=== PATIENT | female | born 1940 | race Caucasian/White ===

== ENCOUNTER → 2016-11-07 | Outpatient (CLI) | payer MEDICARE, OTHER ==
[~2016-11-07] MED LIST: ALDACTONE 25MG25 MG PO; CALCIUM CIT-VI1 EAC2 PO; CEPHALEXIN500 M1 PO; CHILDREN'S ASPI81 M1 PO; CHOLEST OFF450 MG PO; COREG25 MG PO; CYMBALTA60 MG PO; DIGITEK0.125 MG; DULOXETINE60 MG PO; FERATE28 MG; FERROUS SULFAT325 M4 PO; LASIX20 M1 PO; LASIX40 MG PO; LOSARTAN POTAS100 MG PO; MECLIZINE PO; MELADOX NATURAL3 MG PO; MIRAPEX 1MG PO; MIRAPEX1 MG PO; PERCOCET 325 MG1 TA2 PO; STOOL SOFTENER100 M1; SULFASALAZINE500 MG PO; TRAZADONE HYDR100 MG; TYLENOL PM EXTR1 TA1 PO; VALIUM5 M1 PO; ZOFRAN ODT8 M1 PO
== END ==
LOC: RAD 15:59
DX: R10.12 Left upper quadrant pain (principal); K57.30 Diverticulosis of large intestine without perforation or abscess without bleeding
CPT/HCPCS: Q9967

== ENCOUNTER → 2016-11-13 | Outpatient (CLI) | payer MEDICARE, OTHER | LOC: LAB 15:01 | DX: Z51.81 Encounter for therapeutic drug level monitoring (principal); Z79.899 Other long term (current) drug therapy ==

== ENCOUNTER → 2016-11-20 | Outpatient (CLI) | payer MEDICARE, OTHER | LOC: LAB 10:39 | DX: R60.9 Edema, unspecified (principal) ==

== ENCOUNTER 2016-12-24 08:53 | Emergency (ER) | payer MEDICARE, OTHER ==
[~2016-12-24 08:53] MED LIST changes: -MECLIZINE PO; -VALIUM5 M1 PO; -ZOFRAN ODT8 M1 PO
[2016-12-24] MEDS ORDERED: VALIUM5 M1 PO (10:34)
[2016-12-24] MEDS ORDERED: MECLIZINE PO (10:34)
[2016-12-24] MEDS ORDERED: ZOFRAN ODT8 M1 PO (10:34)
[2016-12-24 11:13] VITALS: BP 143/61
== END 2016-12-24 11:05 | disposition home or self-care (01) ==
LOC: ED 08:53
DX: H83.02 Labyrinthitis, left ear (principal); B34.9 Viral infection, unspecified

== ENCOUNTER → 2017-04-11 | Outpatient (CLI) | payer MEDICARE, OTHER ==
[~2017-04-11] MED LIST changes: +MECLIZINE PO; +VALIUM5 M1 PO; +ZOFRAN ODT8 M1 PO
== END ==
LOC: LAB 16:06
DX: E61.1 Iron deficiency (principal); R73.02 Impaired glucose tolerance (oral); I50.9 Heart failure, unspecified; E78.2 Mixed hyperlipidemia; M85.80 Other specified disorders of bone density and structure, unspecified site; G47.33 Obstructive sleep apnea (adult) (pediatric); R20.2 Paresthesia of skin

== ENCOUNTER → 2017-04-14 | Day surgery (SDC) | payer MEDICARE, OTHER | LOC: MSO 10:38 | DX: L57.0 Actinic keratosis (principal) ==

== ENCOUNTER 2017-11-11 00:05 | Emergency (ER) | payer MEDICARE, OTHER ==
[~2017-11-11] VITALS: Ht 170.2 cm; Wt 88.6 kg
[2017-11-11] MEDS ORDERED: COZAAR100 MG PO (01:06)
[2017-11-11] MEDS ORDERED: COREG 25MG25 MG/TAB PO (01:07)
[2017-11-11] MEDS ORDERED: ALDACTONE25 M1 PO (01:07)
[2017-11-11] MEDS ORDERED: DIGOXIN125 MCG PO (01:07)
[2017-11-11] MEDS ORDERED: MECLIZINE PO (01:08)
[2017-11-11] MEDS ORDERED: CYMBALTA60 M1 PO (01:08)
[2017-11-11] MEDS ORDERED: NORTRIPTYLINE H25 M1 PO (01:08)
[2017-11-11] MEDS ORDERED: LASIX20 M1 PO (01:09)
[2017-11-11] MEDS ORDERED: NORCO 325 MG-51 TA1 PO (01:09)
[2017-11-11] MEDS ORDERED: WOMEN'S DAILY F1 TAB PO (01:10)
[2017-11-11] MEDS ORDERED: ASPIR LOW81 MG PO (01:10)
[2017-11-11] MEDS ORDERED: FOSAMAX 70MG TA70 MG PO (01:10)
[2017-11-11] MEDS ORDERED: ACETAMINOPHEN1 EACH PO (01:11)
[2017-11-11] MEDS ORDERED: IRON160 MG PO (01:12)
[2017-11-11] MEDS ORDERED: VITAMIN D32000 UNIT PO (01:12)
[2017-11-11] MEDS ORDERED: COLESTIPOL HYDRO1 GM PO (01:13)
[2017-11-11 03:05] VITALS: BP 152/80
== END 2017-11-11 03:05 | disposition short-term general hospital (02) ==
LOC: ED 00:05
DX: S12.120A Other displaced dens fracture, initial encounter for closed fracture (principal); W18.30XA Fall on same level, unspecified, initial encounter; Y92.009 Unspecified place in unspecified non-institutional (private) residence as the place of occurrence of the external cause; I48.91 Unspecified atrial fibrillation; E11.9 Type 2 diabetes mellitus without complications; I10 Essential (primary) hypertension; Z95.810 Presence of automatic (implantable) cardiac defibrillator; Z79.82 Long term (current) use of aspirin; Z88.6 Allergy status to analgesic agent; Z88.5 Allergy status to narcotic agent; Z88.0 Allergy status to penicillin; R42 Dizziness and giddiness
CPT/HCPCS: A4354; J2270; L0150; L0172

== ENCOUNTER 2017-11-14 10:39 | Inpatient (IN) | payer MEDICARE, OTHER ==
[~2017-11-14] VITALS: Ht 170.2 cm; Wt 84.9 kg
[~2017-11-14 10:39] MED LIST changes: +ACETAMINOPHEN1 EACH PO; +ALDACTONE25 M1 PO; +ASPIR LOW81 MG PO; +COLESTIPOL HYDRO1 GM PO; +COREG 25MG25 MG/TAB PO; +COZAAR100 MG PO; +CYMBALTA60 M1 PO; +DIGOXIN125 MCG PO; +FOSAMAX 70MG TA70 MG PO; +IRON160 MG PO; +NORCO 325 MG-51 TA1 PO; +NORTRIPTYLINE H25 M1 PO; +VITAMIN D32000 UNIT PO; +WOMEN'S DAILY F1 TAB PO
[2017-11-18 14:53] LABS: MEAN CELL VOLUME 93 fl (78-100); MEAN CORPUSCULAR HEMOGLOBIN 29 pg (27-31); MEAN CORPUSCULAR HGB CONC 32 g/dL (33-37); MEAN PLATELET VOLUME 8.7 fl (7.4-10.4); PLATELET COUNT 258 K/mm3 (130-400); RED BLOOD COUNT 4.09 M/mm3 (4.10-5.30); RED CELL DISTRIBUTION WIDTH 13.3 % (11.5-14.5); WHITE BLOOD COUNT 9.6 K/mm3 (4.8-10.8)
[2017-11-18 14:56] VITALS: BP 165/70
[2017-11-18 15:17] LABS: BUN/CREATININE RATIO 32.1 (6.0-26.0); CALCIUM 10.4 mg/dL (8.4-10.2); POTASSIUM 4.2 mmol/L (3.6-5.0)
[2017-11-18 15:42] LABS: LYMPHOCYTE 15 % (20-51); MONOCYTE 7 % (3-10); NEUTROPHILS 77 % (42-75)
[2017-11-18 18:27] VITALS: BP 120/56
[2017-11-18 18:33] VITALS: BP 120/56
[2017-11-18 20:04] LABS: PH-URINE 5.5 (5.0 - 8.0); URINE APPEARANCE CLOUDY; URINE COLOR R
[2017-11-18 20:05] LABS: URINE BILIRUBIN NEGATIVE (NEGATIVE); URINE BLOOD 250 ery/uL (NEGATIVE); URINE GLUCOSE NEGATIVE (NEGATIVE); URINE KETONE NEGATIVE (NEGATIVE); URINE LEUKOCYTE ESTERASE 2+ (NEGATIVE); URINE NITRATE POSITIVE (NEGATIVE); URINE PROTEIN(semi-quant) 1+ mg/dL (NEGATIVE); URINE UROBILINOGEN NORMAL (NORMAL); URINE WBC 31-50 /hpf (0-3)
[2017-11-19 06:31] VITALS: BP 151/67
[2017-11-19 18:46] VITALS: BP 135/58
[2017-11-20 05:45] LABS: BUN/CREATININE RATIO 22.2 (6.0-26.0); CALCIUM 10.1 mg/dL (8.4-10.2); POTASSIUM 3.7 mmol/L (3.6-5.0)
[2017-11-20 06:27] VITALS: BP 165/76
[2017-11-20 18:37] VITALS: BP 140/53
[2017-11-21 06:11] VITALS: BP 145/68
[2017-11-21 18:38] VITALS: BP 139/55
[2017-11-22 06:32] VITALS: BP 135/60
[2017-11-22 18:25] VITALS: BP 116/50
[2017-11-23 06:29] VITALS: BP 151/76
[2017-11-23 18:26] VITALS: BP 115/54
[2017-11-24 06:21] VITALS: BP 150/60
[2017-11-24 07:15] LABS: BUN/CREATININE RATIO 17.7 (6.0-26.0); POTASSIUM 4.1 mmol/L (3.6-5.0)
[2017-11-24 18:33] VITALS: BP 158/49
[2017-11-25 06:42] VITALS: BP 141/58
[2017-11-25 13:42] LABS: PH-URINE 5.5 (5.0 - 8.0); URINE APPEARANCE CLOUDY; URINE COLOR YELLOW; URINE GLUCOSE NEGATIVE (NEGATIVE); URINE KETONE NEGATIVE (NEGATIVE); URINE PROTEIN(semi-quant) 1+ mg/dL (NEGATIVE)
[2017-11-25 13:43] LABS: URINE BILIRUBIN NEGATIVE (NEGATIVE); URINE BLOOD 250 ery/uL (NEGATIVE); URINE LEUKOCYTE ESTERASE 2+ (NEGATIVE); URINE NITRATE NEGATIVE (NEGATIVE); URINE UROBILINOGEN NORMAL (NORMAL); URINE WBC >50 /hpf (0-3)
[2017-11-25 18:35] VITALS: BP 123/63
[2017-11-26 06:25] VITALS: BP 146/65
[2017-11-26 17:09] VITALS: BP 149/71
[2017-11-26 17:35] VITALS: BP 149/71
== END 2017-11-26 18:07 | disposition short-term general hospital (02) | DRG 552 ==
LOC: MED/SURG 10:39
PROVIDERS: Internal Medicine; ADMIT Physician Assistant
DX: S12.100A Unspecified displaced fracture of second cervical vertebra, initial encounter for closed fracture (principal); I50.22 Chronic systolic (congestive) heart failure; N39.0 Urinary tract infection, site not specified; E87.1 Hypo-osmolality and hyponatremia; S14.152A Other incomplete lesion at C2 level of cervical spinal cord, initial encounter; Z66 Do not resuscitate; S13.111A Dislocation of C0/C1 cervical vertebrae, initial encounter; G47.33 Obstructive sleep apnea (adult) (pediatric); I11.0 Hypertensive heart disease with heart failure; Z87.891 Personal history of nicotine dependence; R33.9 Retention of urine, unspecified; W19.XXXA Unspecified fall, initial encounter; Y92.009 Unspecified place in unspecified non-institutional (private) residence as the place of occurrence of the external cause
CPT/HCPCS: J1650; J1885; J3010; L0150

== ENCOUNTER → 2017-12-25 | Outpatient (CLI) | payer MEDICARE, OTHER ==
[2017-11-26 17:35] VITALS: BP 149/71
== END ==
LOC: RAD 15:44
DX: I51.7 Cardiomegaly (principal); R09.02 Hypoxemia

== ENCOUNTER → 2017-12-26 | Outpatient (CLI) | payer MEDICARE, OTHER ==
[2017-11-26 17:35] VITALS: BP 149/71
[2017-12-26 11:38] LABS: BUN/CREATININE RATIO 21.5 (6.0-26.0); CALCIUM 10.7 mg/dL (8.4-10.2); POTASSIUM 4.9 mmol/L (3.6-5.0)
== END ==
LOC: RAD 10:45
PROVIDERS: Internal Medicine
DX: I51.7 Cardiomegaly (principal); R09.89 Other specified symptoms and signs involving the circulatory and respiratory systems; R09.02 Hypoxemia; R06.02 Shortness of breath; E11.9 Type 2 diabetes mellitus without complications
CPT/HCPCS: Q9967

== ENCOUNTER → 2018-02-13 | Outpatient (CLI) | payer MEDICARE, OTHER | LOC: RAD 14:54 | DX: S12.190D Other displaced fracture of second cervical vertebra, subsequent encounter for fracture with routine healing (principal); M54.12 Radiculopathy, cervical region; M81.0 Age-related osteoporosis without current pathological fracture; M50.30 Other cervical disc degeneration, unspecified cervical region ==

== ENCOUNTER 2018-04-13 14:30 | Outpatient (RCR) | payer MEDICARE, OTHER | END 2018-04-13 15:00 | disposition home or self-care (01) | LOC: PT 14:30 | DX: S12.112D Nondisplaced Type II dens fracture, subsequent encounter for fracture with routine healing (principal); W19.XXXD Unspecified fall, subsequent encounter ==

== ENCOUNTER → 2018-04-28 | Outpatient (CLI) | payer MEDICARE, OTHER | LOC: MAMMO 13:39 | DX: Z12.31 Encounter for screening mammogram for malignant neoplasm of breast (principal) ==

== ENCOUNTER → 2018-04-28 | Outpatient (CLI) | payer MEDICARE, OTHER | LOC: RAD 13:40 → MAMMO 14:30 → RAD 14:30 | DX: Z13.820 Encounter for screening for osteoporosis (principal); M85.88 Other specified disorders of bone density and structure, other site; M47.896 Other spondylosis, lumbar region ==

== ENCOUNTER → 2018-06-24 | Outpatient (CLI) | payer MEDICARE, OTHER ==
[2018-06-24 11:51] LABS: EOS # 0.3 (0.04-0.40); HEMATOCRIT 37.3 % (37.0-47.0); HEMOGLOBIN 12.1 g/dL (12.5-16.0); LYMPH# 1.3 (1.50-4.00); MEAN CELL VOLUME 93 fl (78-100); MEAN CORPUSCULAR HEMOGLOBIN 30 pg (27-31); MEAN CORPUSCULAR HGB CONC 32 g/dL (33-37); MEAN PLATELET VOLUME 9.3 fl (7.4-10.4); MONO # 0.8 (0.20-0.80); NEU # 4.2 (1.40-6.50); PLATELET COUNT 242 K/mm3 (130-400); RED CELL DISTRIBUTION WIDTH 12.8 % (11.5-14.5); WHITE BLOOD COUNT 6.8 K/mm3 (4.8-10.8)
[2018-06-24 11:53] LABS: ALBUMIN 4.4 g/dL (3.5-5.0); CALCIUM 10.8 mg/dL (8.4-10.2); TOTAL BILIRUBIN 0.6 mg/dL (0.2-1.3); TOTAL PROTEIN 7.6 g/dL (6.3-8.2)
[2018-06-24 12:54] LABS: ERYTHROCYTE SEDIMENTATION RATE 23 mm/hr (0-30)
== END ==
LOC: LAB 10:44
PROVIDERS: Internal Medicine
DX: E11.9 Type 2 diabetes mellitus without complications (principal); K90.9 Intestinal malabsorption, unspecified; I10 Essential (primary) hypertension; J43.1 Panlobular emphysema; I42.0 Dilated cardiomyopathy

== ENCOUNTER → 2018-12-04 | Outpatient (CLI) | payer MEDICARE, OTHER | LOC: RAD 13:26 | DX: M16.11 Unilateral primary osteoarthritis, right hip (principal); S33.4XXS Traumatic rupture of symphysis pubis, sequela ==

== ENCOUNTER 2019-02-05 16:48 | Emergency (ER) | payer MEDICARE, OTHER ==
[~2019-02-05] VITALS: Wt 85.3 kg
[2019-02-05] MEDS ORDERED: ASPIR LOW81 MG PO (16:58)
[2019-02-05] MEDS ORDERED: ATORVASTATIN CA20 MG PO (16:58)
[2019-02-05] MEDS ORDERED: XARELTO20 MG PO (16:59)
[2019-02-05] MEDS ORDERED: DEMADEX 20MG20 M1 PO (16:59)
[2019-02-05] MEDS ORDERED: COUMADIN 5MG5 MG/TAB PO (17:00)
[2019-02-05] MEDS ORDERED: DULOXETINE60 MG PO (17:00)
[2019-02-05] MEDS ORDERED: CARVEDILOL25 MG PO (17:00)
[2019-02-05] MEDS ORDERED: FLOVENT HFA12 GM IH (17:01)
[2019-02-05] MEDS ORDERED: NEURONTIN300 MG/CAP (17:01)
[2019-02-05 17:42] LABS: PROTHROMBIN TIME 12.7 SECONDS (9.0-12.0)
[2019-02-05 17:44] LABS: CALCIUM 10.8 mg/dL (8.4-10.2); POTASSIUM 4.1 mmol/L (3.5-5.1)
[2019-02-05 19:27] VITALS: BP 144/74
== END 2019-02-05 19:27 | disposition home or self-care (01) ==
LOC: ED 16:48
PROVIDERS: Family Medicine
DX: I48.91 Unspecified atrial fibrillation (principal); I50.9 Heart failure, unspecified; N18.9 Chronic kidney disease, unspecified; I25.10 Atherosclerotic heart disease of native coronary artery without angina pectoris; J44.9 Chronic obstructive pulmonary disease, unspecified; Z79.82 Long term (current) use of aspirin; Z79.01 Long term (current) use of anticoagulants; Z96.653 Presence of artificial knee joint, bilateral; Z96.611 Presence of right artificial shoulder joint; Z96.612 Presence of left artificial shoulder joint
CPT/HCPCS: J1940

== ENCOUNTER → 2019-03-02 | Outpatient (CLI) | payer MEDICARE, OTHER ==
[2019-02-05 19:27] VITALS: BP 144/74
[~2019-03-02] MED LIST changes: +ATORVASTATIN CA20 MG PO; +CARVEDILOL25 MG PO; +COUMADIN 5MG5 MG/TAB PO; +DEMADEX 20MG20 M1 PO; +FLOVENT HFA12 GM IH; +NEURONTIN300 MG/CAP; +XARELTO20 MG PO
[2019-03-02 16:33] LABS: ALBUMIN 3.9 g/dL (3.4-4.8); POTASSIUM 3.6 mmol/L (3.5-5.1); TOTAL BILIRUBIN 0.7 mg/dL (0.2-1.2); TOTAL PROTEIN 7.1 g/dL (6.2-8.1)
== END ==
LOC: LAB 16:01
PROVIDERS: Internal Medicine
DX: E11.9 Type 2 diabetes mellitus without complications (principal); I42.0 Dilated cardiomyopathy; I10 Essential (primary) hypertension; J43.1 Panlobular emphysema

== ENCOUNTER → 2019-03-23 | Outpatient (CLI) | payer MEDICARE, OTHER | LOC: RAD 13:35 | DX: G31.9 Degenerative disease of nervous system, unspecified (principal) ==

== ENCOUNTER → 2019-03-29 | Outpatient (CLI) | payer MEDICARE, OTHER | LOC: RAD 07:00 | DX: G20 Parkinson's disease (principal); R13.10 Dysphagia, unspecified ==

== ENCOUNTER 2019-04-06 14:03 | Outpatient (RCR) | payer MEDICARE, OTHER | END 2019-04-06 14:30 | disposition still patient (30) | LOC: SPEECH 14:03 | DX: G20 Parkinson's disease (principal); R13.12 Dysphagia, oropharyngeal phase ==

== ENCOUNTER → 2019-07-08 | Outpatient (CLI) | payer MEDICARE, OTHER ==
[~2019-07-08] VITALS: Ht 170.2 cm; Wt 82.7 kg
[~2019-07-08] MED LIST changes: +COZAAR25 M1 PO; +REQUIP0.25 M1 PO; +TYLENOL EXTRA500 M2 PO; +VITAMIN C 250250 MG PO
[2019-07-08 14:16] VITALS: BP 141/66
[2019-07-08 14:30] LABS: POTASSIUM 3.9 mmol/L (3.5-5.1)
[2019-07-08 14:31] LABS: CALCIUM 10.6 mg/dL (8.3-10.5)
== END ==
LOC: AMSURD 13:46
PROVIDERS: Internal Medicine Cardiovascular Disease
DX: I48.0 Paroxysmal atrial fibrillation (principal); Z79.899 Other long term (current) drug therapy

== ENCOUNTER 2019-08-03 14:00 | Outpatient (RCR) | payer MEDICARE, OTHER ==
[2019-07-08 14:16] VITALS: BP 141/66
== END 2019-08-03 14:30 | disposition home or self-care (01) ==
LOC: SPEECH 14:00
DX: G20 Parkinson's disease (principal)

== ENCOUNTER 2019-08-25 13:16 | Emergency (ER) | payer MEDICARE, OTHER ==
[~2019-08-25] VITALS: Wt 85.1 kg
[2019-08-25] MEDS ORDERED: COUMADIN 3MG3 MG/TAB PO (13:27)
[2019-08-25] MEDS ORDERED: NEURONTIN300 MG/CAP (13:27)
[2019-08-25] MEDS ORDERED: ALENDRONATE SOD70 MG PO (13:27)
[2019-08-25] MEDS ORDERED: DIGOX0.125 MG PO (13:28)
[2019-08-25] MEDS ORDERED: TORSEMIDE20 M1 PO (13:28)
[2019-08-25] MEDS ORDERED: ROPINIROLE HYD0.5 MG (13:29)
[2019-08-25] MEDS ORDERED: CARBIDOPA/LEVODOPA PO (13:30)
[2019-08-25 13:59] LABS: HEMATOCRIT 39.8 % (37.0-47.0); HEMOGLOBIN 12.3 g/dL (12.5-16.0); MEAN CELL VOLUME 97 fl (78-100); MEAN CORPUSCULAR HEMOGLOBIN 30 pg (27-31); MEAN CORPUSCULAR HGB CONC 31 g/dL (33-37); MEAN PLATELET VOLUME 9.1 fl (7.4-10.4); PLATELET COUNT 237 K/mm3 (130-400); RED CELL DISTRIBUTION WIDTH 16.3 % (11.5-14.5); WHITE BLOOD COUNT 9.6 K/mm3 (4.8-10.8)
[2019-08-25 14:07] LABS: ALBUMIN 4.1 g/dL (3.4-4.8); POTASSIUM 3.3 mmol/L (3.5-5.1)
[2019-08-25 14:09] LABS: CALCIUM 10.7 mg/dL (8.3-10.5); LYMPHOCYTE 11 % (20-51); MONOCYTE 8 % (3-10); NEUTROPHILS 79 % (42-75)
[2019-08-25 14:09] LABS: PROTHROMBIN TIME 15.6 SECONDS (9.0-12.0)
[2019-08-25 14:10] LABS: TOTAL PROTEIN 7.2 g/dL (6.2-8.1)
[2019-08-25 14:12] LABS: TOTAL BILIRUBIN 1.1 mg/dL (0.2-1.2)
[2019-08-25 14:22] LABS: TROPONIN-I 0.03 ng/mL (<0.030)
[2019-08-25 14:44] LABS: PH-URINE 7.5 (5.0 - 8.0); URINE APPEARANCE CLEAR; URINE BILIRUBIN NEGATIVE (NEGATIVE); URINE BLOOD NEGATIVE (NEGATIVE); URINE COLOR YELLOW; URINE GLUCOSE NEGATIVE (NEGATIVE); URINE KETONE NEGATIVE (NEGATIVE); URINE LEUKOCYTE ESTERASE NEGATIVE (NEGATIVE); URINE MUCUS PRESENT (NOT PRESENT); URINE NITRATE NEGATIVE (NEGATIVE); URINE PROTEIN(semi-quant) TRACE mg/dL (NEGATIVE); URINE UROBILINOGEN NORMAL (NORMAL)
[2019-08-25 15:04] LABS: D-DIMER 0.46 mg/L FEU (0.15-0.50)
[2019-08-25 18:08] VITALS: BP 156/68
== END 2019-08-25 18:00 | disposition short-term general hospital (02) ==
LOC: ED 13:16
PROVIDERS: Physician Assistant
DX: I50.9 Heart failure, unspecified (principal); E87.6 Hypokalemia; R11.2 Nausea with vomiting, unspecified; R79.1 Abnormal coagulation profile; I48.91 Unspecified atrial fibrillation; J44.9 Chronic obstructive pulmonary disease, unspecified; I25.10 Atherosclerotic heart disease of native coronary artery without angina pectoris; N18.9 Chronic kidney disease, unspecified; Z90.89 Acquired absence of other organs; Z79.82 Long term (current) use of aspirin; Z79.01 Long term (current) use of anticoagulants
CPT/HCPCS: J1940; J2405

== ENCOUNTER → 2019-09-03 | Outpatient (CLI) | payer MEDICARE, OTHER ==
[2019-08-25 18:08] VITALS: BP 156/68
[~2019-09-03] MED LIST changes: +ALENDRONATE SOD70 MG PO; +CARBIDOPA/LEVODOPA PO; +COUMADIN 3MG3 MG/TAB PO; +DIGOX0.125 MG PO; +ROPINIROLE HYD0.5 MG; +TORSEMIDE20 M1 PO
[2019-09-03 11:03] LABS: BASO # 0.1 (0.02-0.10); EOS # 0.2 (0.04-0.40); EOS % 2.6 % (1.0-5.0); HEMATOCRIT 39.4 % (37.0-47.0); HEMOGLOBIN 12.2 g/dL (12.5-16.0); LYMPH# 1.2 (1.50-4.00); MEAN CELL VOLUME 96 fl (78-100); MEAN CORPUSCULAR HEMOGLOBIN 30 pg (27-31); MEAN CORPUSCULAR HGB CONC 31 g/dL (33-37); MEAN PLATELET VOLUME 8.8 fl (7.4-10.4); NEU # 6.5 (1.40-6.50); PLATELET COUNT 315 K/mm3 (130-400); RED BLOOD COUNT 4.11 M/mm3 (4.10-5.30); RED CELL DISTRIBUTION WIDTH 16.6 % (11.5-14.5); WHITE BLOOD COUNT 9.1 K/mm3 (4.8-10.8)
[2019-09-03 11:09] LABS: ALBUMIN 4.1 g/dL (3.4-4.8); POTASSIUM 3.7 mmol/L (3.5-5.1)
[2019-09-03 11:11] LABS: CALCIUM 11.3 mg/dL (8.3-10.5)
[2019-09-03 11:12] LABS: TOTAL PROTEIN 7.1 g/dL (6.2-8.1)
[2019-09-03 11:14] LABS: TOTAL BILIRUBIN 0.7 mg/dL (0.2-1.2)
[2019-09-03 11:19] LABS: MAGNESIUM 2.05 mg/dL (1.60-2.60)
[2019-09-03 12:19] LABS: PROTHROMBIN TIME 15.2 SECONDS (9.0-12.0)
== END ==
LOC: LAB 10:45
PROVIDERS: Internal Medicine
DX: E11.9 Type 2 diabetes mellitus without complications (principal); I48.0 Paroxysmal atrial fibrillation; J43.1 Panlobular emphysema; I42.0 Dilated cardiomyopathy; I11.0 Hypertensive heart disease with heart failure; I50.23 Acute on chronic systolic (congestive) heart failure

== ENCOUNTER 2019-09-17 14:46 | Emergency (ER) | payer MEDICARE, OTHER ==
[~2019-09-17] VITALS: Wt 87.7 kg
[~2019-09-17 14:46] MED LIST changes: -DEMADEX 20MG20 M1 PO; +FERROUS GLUCON324 M2 PO; -IRON160 MG PO; +NEURONTIN300 MG/CAP PO; -TYLENOL EXTRA500 M2 PO
[2019-09-17 15:50] LABS: HEMATOCRIT 33.2 % (37.0-47.0); MEAN CELL VOLUME 98 fl (78-100); MEAN CORPUSCULAR HEMOGLOBIN 29 pg (27-31); MEAN CORPUSCULAR HGB CONC 30 g/dL (33-37); MEAN PLATELET VOLUME 8.3 fl (7.4-10.4); PLATELET COUNT 237 K/mm3 (130-400); RED CELL DISTRIBUTION WIDTH 16.1 % (11.5-14.5)
[2019-09-17 16:03] LABS: ALBUMIN 3.8 g/dL (3.4-4.8)
[2019-09-17 16:04] LABS: CALCIUM 10.2 mg/dL (8.3-10.5)
[2019-09-17 16:05] LABS: TOTAL PROTEIN 6.9 g/dL (6.2-8.1)
[2019-09-17 16:15] LABS: LYMPHOCYTE 12 % (20-51); MONOCYTE 7 % (3-10); NEUTROPHILS 77 % (42-75)
[2019-09-17] MEDS ORDERED: PRAMIPEXOLE DIHY1 MG PO (18:38)
[2019-09-17 18:40] LABS: PROTHROMBIN TIME 17.4 SECONDS (9.0-12.0)
[2019-09-17] MEDS ORDERED: CALCIUM CARBONATE PO (18:42)
[2019-09-17] MEDS ORDERED: MULTI-VITAMIN W1 TA1 PO (18:43)
[2019-09-17] MEDS ORDERED: CHOLEST OFF450 MG PO (18:45)
[2019-09-17 18:51] VITALS: BP 146/81
[2019-09-20] MEDS ORDERED: METOLAZONE5 MG PO (08:56)
== END 2019-09-17 19:07 | disposition other institution (70) ==
LOC: ED 14:46
PROVIDERS: Family Medicine; Nurse Practitioner Primary Care
DX: I11.0 Hypertensive heart disease with heart failure (principal); I50.82 Biventricular heart failure; I48.91 Unspecified atrial fibrillation; E11.9 Type 2 diabetes mellitus without complications; I27.20 Pulmonary hypertension, unspecified; G20 Parkinson's disease; Z79.01 Long term (current) use of anticoagulants; Z79.82 Long term (current) use of aspirin; Z95.0 Presence of cardiac pacemaker
CPT/HCPCS: J1940

== ENCOUNTER 2019-09-24 12:00 | Inpatient (IN) | payer MEDICARE, OTHER ==
[~2019-09-24] VITALS: Ht 170.2 cm; Wt 79.5 kg
[~2019-09-24 12:00] MED LIST changes: +CALCIUM CARBONATE PO; +METOLAZONE5 MG PO; +MULTI-VITAMIN W1 TA1 PO; +PRAMIPEXOLE DIHY1 MG PO
[2019-09-24 14:19] VITALS: BP 146/69
[2019-09-24 15:01] LABS: HEMOGLOBIN 13.1 g/dL (12.5-16.0); MEAN CELL VOLUME 90 fl (78-100); MEAN CORPUSCULAR HEMOGLOBIN 29 pg (27-31); MEAN CORPUSCULAR HGB CONC 33 g/dL (33-37); MEAN PLATELET VOLUME 8.4 fl (7.4-10.4); PLATELET COUNT 334 K/mm3 (130-400); RED BLOOD COUNT 4.47 M/mm3 (4.10-5.30); RED CELL DISTRIBUTION WIDTH 14.8 % (11.5-14.5); WHITE BLOOD COUNT 8.4 K/mm3 (4.8-10.8)
[2019-09-24 15:06] LABS: ALBUMIN 4.2 g/dL (3.4-4.8); SODIUM 124 mmol/L (136-145)
[2019-09-24 15:07] LABS: CALCIUM 11.8 mg/dL (8.3-10.5)
[2019-09-24 15:08] LABS: GLUCOSE 138 mg/dL (65-105); TOTAL PROTEIN 7.5 g/dL (6.2-8.1)
[2019-09-24 15:09] LABS: PH-URINE 5.5 (5.0 - 8.0); URINE APPEARANCE CLEAR; URINE BILIRUBIN NEGATIVE (NEGATIVE); URINE BLOOD NEGATIVE (NEGATIVE); URINE COLOR YELLOW; URINE GLUCOSE NEGATIVE (NEGATIVE); URINE KETONE NEGATIVE (NEGATIVE); URINE LEUKOCYTE ESTERASE NEGATIVE (NEGATIVE); URINE MUCUS PRESENT (NOT PRESENT); URINE NITRATE NEGATIVE (NEGATIVE); URINE PROTEIN(semi-quant) TRACE mg/dL (NEGATIVE); URINE UROBILINOGEN NORMAL (NORMAL)
[2019-09-24 15:10] LABS: TOTAL BILIRUBIN 1.1 mg/dL (0.2-1.2)
[2019-09-24 15:14] LABS: AST-SGOT 24 U/L (5-34)
[2019-09-24 15:15] LABS: ALT/SGPT 11 U/L (0-55); LIPASE 29 U/L (8-78)
[2019-09-24 15:17] LABS: POTASSIUM 2.8 mmol/L (3.5-5.1)
[2019-09-24 15:18] LABS: CARBON DIOXIDE > 50 mmol/L (23-31)
[2019-09-24 15:26] LABS: BAND 1 % (0-10); LYMPHOCYTE 12 % (20-51); MONOCYTE 9 % (3-10); NEUTROPHILS 74 % (42-75)
[2019-09-24 18:04] VITALS: BP 101/62
[2019-09-25 05:21] VITALS: BP 137/66
[2019-09-25 07:57] LABS: CALCIUM 10.4 mg/dL (8.3-10.5)
[2019-09-25 18:02] VITALS: BP 113/70
[2019-09-26 05:56] VITALS: BP 120/73
[2019-09-26 13:25] LABS: POTASSIUM 4.3 mmol/L (3.5-5.1)
[2019-09-26 13:26] LABS: CALCIUM 9.7 mg/dL (8.3-10.5)
[2019-09-26 17:22] VITALS: BP 119/72
[2019-09-27 05:30] VITALS: BP 116/70
[2019-09-27 17:50] VITALS: BP 110/66
[2019-09-28 05:59] VITALS: BP 137/73
[2019-09-28 16:48] LABS: HEMATOCRIT 34.8 % (37.0-47.0); MEAN CELL VOLUME 94 fl (78-100); MEAN CORPUSCULAR HEMOGLOBIN 30 pg (27-31); MEAN CORPUSCULAR HGB CONC 32 g/dL (33-37); MEAN PLATELET VOLUME 8.5 fl (7.4-10.4); PLATELET COUNT 243 K/mm3 (130-400); RED CELL DISTRIBUTION WIDTH 15.4 % (11.5-14.5); WHITE BLOOD COUNT 10.1 K/mm3 (4.8-10.8)
[2019-09-28 16:54] LABS: POTASSIUM 4.3 mmol/L (3.5-5.1)
[2019-09-28 16:55] LABS: CALCIUM 10.5 mg/dL (8.3-10.5)
[2019-09-28 17:00] LABS: LYMPHOCYTE 10 % (20-51); MONOCYTE 8 % (3-10); NEUTROPHILS 80 % (42-75)
[2019-09-28 18:30] VITALS: BP 129/64
[2019-09-29 05:29] LABS: HEMATOCRIT 33.8 % (37.0-47.0); HEMOGLOBIN 10.7 g/dL (12.5-16.0); MEAN CELL VOLUME 93 fl (78-100); MEAN CORPUSCULAR HEMOGLOBIN 30 pg (27-31); MEAN CORPUSCULAR HGB CONC 32 g/dL (33-37); MEAN PLATELET VOLUME 8.6 fl (7.4-10.4); PLATELET COUNT 232 K/mm3 (130-400); RED BLOOD COUNT 3.63 M/mm3 (4.10-5.30); RED CELL DISTRIBUTION WIDTH 15.4 % (11.5-14.5); WHITE BLOOD COUNT 10.3 K/mm3 (4.8-10.8)
[2019-09-29 05:43] LABS: POTASSIUM 4.2 mmol/L (3.5-5.1)
[2019-09-29 05:44] LABS: CALCIUM 10.4 mg/dL (8.3-10.5)
[2019-09-29 06:02] VITALS: BP 131/78
[2019-09-29 06:05] LABS: PROTHROMBIN TIME 18.1 SECONDS (9.0-12.0)
[2019-09-29 06:26] LABS: LYMPHOCYTE 7 % (20-51); MONOCYTE 5 % (3-10); NEUTROPHILS 85 % (42-75); POLYCHROMASIA 1+
[2019-09-29 17:17] LABS: PH-URINE 7.5 (5.0 - 8.0); URINE APPEARANCE CLEAR; URINE BILIRUBIN NEGATIVE (NEGATIVE); URINE BLOOD NEGATIVE (NEGATIVE); URINE COLOR YELLOW; URINE GLUCOSE NEGATIVE (NEGATIVE); URINE KETONE NEGATIVE (NEGATIVE); URINE LEUKOCYTE ESTERASE TRACE (NEGATIVE); URINE NITRATE NEGATIVE (NEGATIVE); URINE PROTEIN(semi-quant) NEGATIVE (NEGATIVE); URINE UROBILINOGEN NORMAL (NORMAL)
[2019-09-29 17:18] LABS: URINE MUCUS PRESENT (NOT PRESENT)
[2019-09-29 18:03] VITALS: BP 125/64
[2019-09-30 06:08] VITALS: BP 138/76
[2019-09-30 17:04] VITALS: BP 133/83
[2019-10-01 05:40] VITALS: BP 148/79
[2019-10-01 05:40] LABS: HEMOGLOBIN 10.7 g/dL (12.5-16.0); MEAN CELL VOLUME 94 fl (78-100); MEAN CORPUSCULAR HEMOGLOBIN 30 pg (27-31); MEAN CORPUSCULAR HGB CONC 32 g/dL (33-37); PLATELET COUNT 248 K/mm3 (130-400); RED BLOOD COUNT 3.62 M/mm3 (4.10-5.30); RED CELL DISTRIBUTION WIDTH 15.3 % (11.5-14.5); WHITE BLOOD COUNT 7.8 K/mm3 (4.8-10.8)
[2019-10-01 05:44] LABS: POTASSIUM 4.3 mmol/L (3.5-5.1)
[2019-10-01 05:45] LABS: CALCIUM 10.9 mg/dL (8.3-10.5)
[2019-10-01 05:51] LABS: PROTHROMBIN TIME 17.7 SECONDS (9.0-12.0)
[2019-10-01 06:00] LABS: LYMPHOCYTE 9 % (20-51); MONOCYTE 8 % (3-10); NEUTROPHILS 81 % (42-75); POLYCHROMASIA 1+
[2019-10-01 18:14] VITALS: BP 127/61
[2019-10-02 05:41] VITALS: BP 116/66
[2019-10-02 18:10] VITALS: BP 129/77
[2019-10-03 06:22] VITALS: BP 131/73
[2019-10-03 18:20] VITALS: BP 148/72
[2019-10-04 06:09] VITALS: BP 117/68
[2019-10-04 13:19] LABS: HEMATOCRIT 34.9 % (37.0-47.0); HEMOGLOBIN 10.5 g/dL (12.5-16.0); MEAN CELL VOLUME 97 fl (78-100); MEAN CORPUSCULAR HEMOGLOBIN 29 pg (27-31); MEAN CORPUSCULAR HGB CONC 30 g/dL (33-37); MEAN PLATELET VOLUME 8.7 fl (7.4-10.4); PLATELET COUNT 297 K/mm3 (130-400); RED BLOOD COUNT 3.61 M/mm3 (4.10-5.30); RED CELL DISTRIBUTION WIDTH 15.5 % (11.5-14.5); WHITE BLOOD COUNT 8.3 K/mm3 (4.8-10.8)
[2019-10-04 13:39] LABS: POTASSIUM 3.9 mmol/L (3.5-5.1)
[2019-10-04 13:40] LABS: CALCIUM 10.8 mg/dL (8.3-10.5)
[2019-10-04 14:13] LABS: LYMPHOCYTE 8 % (20-51); MONOCYTE 13 % (3-10); NEUTROPHILS 75 % (42-75)
[2019-10-04 14:14] LABS: OVALOCYTES 1+; TARGET CELLS 1+
[2019-10-04 17:56] VITALS: BP 130/66
[2019-10-05 06:00] VITALS: BP 131/74
[2019-10-05 06:18] LABS: PROTHROMBIN TIME 23.5 SECONDS (9.0-12.0)
[2019-10-05 18:10] VITALS: BP 130/60
[2019-10-06 06:02] VITALS: BP 121/75
[2019-10-06] MEDS ORDERED: COUMADIN 4MG4 MG/TAB PO (10:10)
== END 2019-10-06 16:25 | disposition home health service (06) | DRG 948 ==
LOC: MED/SURG 12:00
PROVIDERS: Nurse Practitioner Family; Nurse Practitioner Primary Care; Physician Assistant; ADMIT Family Medicine
DX: R53.81 Other malaise (principal); E87.1 Hypo-osmolality and hyponatremia; I50.82 Biventricular heart failure; G20 Parkinson's disease; R26.9 Unspecified abnormalities of gait and mobility; Z79.82 Long term (current) use of aspirin; Z88.0 Allergy status to penicillin
CPT/HCPCS: J1940; J3480; J3490

== ENCOUNTER → 2019-10-11 | Outpatient (CLI) | payer MEDICARE, OTHER ==
[2019-10-06 06:02] VITALS: BP 121/75
[~2019-10-11] MED LIST changes: +COUMADIN 4MG4 MG/TAB PO
[2019-10-11 12:48] LABS: PROTHROMBIN TIME 44.7 SECONDS (9.0-12.0)
== END ==
LOC: LAB 11:34
PROVIDERS: Internal Medicine
DX: I48.20 Chronic atrial fibrillation, unspecified (principal); I42.0 Dilated cardiomyopathy

== ENCOUNTER 2019-10-14 10:55 | Emergency (ER) | payer MEDICARE, OTHER ==
[~2019-10-14] VITALS: Wt 78.9 kg
[2019-10-14 11:43] LABS: HEMATOCRIT 37.3 % (37.0-47.0); HEMOGLOBIN 12.7 g/dL (12.5-16.0); MEAN CELL VOLUME 86 fl (78-100); MEAN CORPUSCULAR HEMOGLOBIN 29 pg (27-31); MEAN CORPUSCULAR HGB CONC 34 g/dL (33-37); MEAN PLATELET VOLUME 8.6 fl (7.4-10.4); PLATELET COUNT 310 K/mm3 (130-400); RED BLOOD COUNT 4.32 M/mm3 (4.10-5.30); RED CELL DISTRIBUTION WIDTH 14.5 % (11.5-14.5); WHITE BLOOD COUNT 10.9 K/mm3 (4.8-10.8)
[2019-10-14 11:45] LABS: ALBUMIN 3.9 g/dL (3.4-4.8)
[2019-10-14 11:48] LABS: TOTAL PROTEIN 7.1 g/dL (6.2-8.1)
[2019-10-14 11:49] LABS: TOTAL BILIRUBIN 1.4 mg/dL (0.2-1.2)
[2019-10-14 11:53] LABS: LYMPHOCYTE 5 % (20-51); MONOCYTE 6 % (3-10); NEUTROPHILS 87 % (42-75)
[2019-10-14 11:59] LABS: POTASSIUM 2.7 mmol/L (3.5-5.1)
[2019-10-14 15:02] VITALS: BP 131/73
== END 2019-10-14 13:45 | disposition other institution (70) ==
LOC: ED 10:55
PROVIDERS: Nurse Practitioner Primary Care
DX: E87.1 Hypo-osmolality and hyponatremia (principal); E87.6 Hypokalemia; R11.2 Nausea with vomiting, unspecified; R53.81 Other malaise; I11.0 Hypertensive heart disease with heart failure; I50.9 Heart failure, unspecified; K21.9 Gastro-esophageal reflux disease without esophagitis; Z79.01 Long term (current) use of anticoagulants; Z79.82 Long term (current) use of aspirin; Z90.49 Acquired absence of other specified parts of digestive tract; Z90.710 Acquired absence of both cervix and uterus; Z95.5 Presence of coronary angioplasty implant and graft; Z96.653 Presence of artificial knee joint, bilateral; Z96.611 Presence of right artificial shoulder joint; Z96.612 Presence of left artificial shoulder joint
CPT/HCPCS: J2405

== ENCOUNTER → 2019-10-14 | Outpatient (CLI) | payer MEDICARE, OTHER ==
[2019-10-06 06:02] VITALS: BP 121/75
== END ==
LOC: LAB 09:55
PROVIDERS: Internal Medicine Cardiovascular Disease
DX: I42.0 Dilated cardiomyopathy (principal); I48.20 Chronic atrial fibrillation, unspecified

== ENCOUNTER → 2019-11-08 | Outpatient (CLI) | payer MEDICARE, OTHER ==
[2019-10-22 13:00] VITALS: BP 133/79
[~2019-11-08] MED LIST changes: +ACETAMINOPHEN500 M5 PO; +K-TAB20 MEQ PO; +OSCAL 500 TAB500 MG PO; +PROTONIX20 M1 PO; +SLOW-MAG 106 MG1 ECT PO
[2019-11-08 13:14] LABS: HEMATOCRIT 36.4 % (37.0-47.0); MEAN CELL VOLUME 96 fl (78-100); MEAN CORPUSCULAR HEMOGLOBIN 29 pg (27-31); MEAN CORPUSCULAR HGB CONC 30 g/dL (33-37); MEAN PLATELET VOLUME 9.5 fl (7.4-10.4); PLATELET COUNT 271 K/mm3 (130-400); RED BLOOD COUNT 3.81 M/mm3 (4.10-5.30); WHITE BLOOD COUNT 6.8 K/mm3 (4.8-10.8)
[2019-11-08 13:18] LABS: ALBUMIN 3.9 g/dL (3.4-4.8)
[2019-11-08 13:19] LABS: SODIUM 135 mmol/L (136-145)
[2019-11-08 13:20] LABS: CALCIUM 9.7 mg/dL (8.3-10.5)
[2019-11-08 13:21] LABS: GLUCOSE 123 mg/dL (65-105); TOTAL PROTEIN 6.6 g/dL (6.2-8.1)
[2019-11-08 13:22] LABS: CARBON DIOXIDE 33 mmol/L (23-31)
[2019-11-08 13:23] LABS: TOTAL BILIRUBIN 0.6 mg/dL (0.2-1.2)
[2019-11-08 13:26] LABS: AST-SGOT 20 U/L (5-34)
[2019-11-08 13:27] LABS: MAGNESIUM 1.87 mg/dL (1.60-2.60)
[2019-11-08 13:28] LABS: ALT/SGPT < 6 U/L (0-55)
[2019-11-08 13:29] LABS: LYMPHOCYTE 10 % (20-51); MONOCYTE 11 % (3-10); NEUTROPHILS 76 % (42-75)
[2019-11-08 13:32] LABS: PROTHROMBIN TIME 41.5 SECONDS (9.0-12.0)
== END ==
LOC: LAB 12:26
PROVIDERS: Internal Medicine
DX: I48.91 Unspecified atrial fibrillation (principal); I11.0 Hypertensive heart disease with heart failure; I42.0 Dilated cardiomyopathy; E11.9 Type 2 diabetes mellitus without complications; J43.1 Panlobular emphysema; I50.9 Heart failure, unspecified

== ENCOUNTER → 2019-11-10 | Outpatient (CLI) | payer MEDICARE, OTHER ==
[2019-10-22 13:00] VITALS: BP 133/79
[2019-11-10 11:25] LABS: PROTHROMBIN TIME 59.5 SECONDS (9.0-12.0)
== END ==
LOC: LAB 10:27
PROVIDERS: Internal Medicine
DX: I48.20 Chronic atrial fibrillation, unspecified (principal); I42.0 Dilated cardiomyopathy

== ENCOUNTER → 2019-11-12 | Outpatient (CLI) | payer MEDICARE, OTHER ==
[2019-10-22 13:00] VITALS: BP 133/79
[2019-11-12 12:54] LABS: PROTHROMBIN TIME 24.7 SECONDS (9.0-12.0)
== END ==
LOC: LAB 11:36
PROVIDERS: Internal Medicine
DX: I48.20 Chronic atrial fibrillation, unspecified (principal); I42.0 Dilated cardiomyopathy

== ENCOUNTER → 2019-11-15 | Outpatient (CLI) | payer MEDICARE, OTHER ==
[2019-10-22 13:00] VITALS: BP 133/79
[2019-11-15 15:15] LABS: POTASSIUM 4.4 mmol/L (3.5-5.1)
[2019-11-15 15:16] LABS: CALCIUM 9.8 mg/dL (8.3-10.5)
[2019-11-15 15:22] LABS: MAGNESIUM 1.99 mg/dL (1.60-2.60)
== END ==
LOC: LAB 11:18
PROVIDERS: Internal Medicine
DX: I50.23 Acute on chronic systolic (congestive) heart failure (principal)

== ENCOUNTER → 2019-11-18 | Outpatient (CLI) | payer MEDICARE, OTHER ==
[2019-10-22 13:00] VITALS: BP 133/79
[2019-11-18 12:01] LABS: PROTHROMBIN TIME 20.2 SECONDS (9.0-12.0)
== END ==
LOC: LAB 10:47
PROVIDERS: Internal Medicine
DX: I48.20 Chronic atrial fibrillation, unspecified (principal); I42.0 Dilated cardiomyopathy

== ENCOUNTER → 2019-11-26 | Outpatient (CLI) | payer MEDICARE, OTHER ==
[2019-10-22 13:00] VITALS: BP 133/79
[2019-11-26 12:39] LABS: PROTHROMBIN TIME 60.3 SECONDS (9.0-12.0)
== END ==
LOC: LAB 10:24
PROVIDERS: Internal Medicine
DX: I48.20 Chronic atrial fibrillation, unspecified (principal); I42.0 Dilated cardiomyopathy

== ENCOUNTER → 2019-11-29 | Outpatient (CLI) | payer MEDICARE, OTHER ==
[2019-10-22 13:00] VITALS: BP 133/79
[2019-11-29 11:34] LABS: PROTHROMBIN TIME 22.3 SECONDS (9.0-12.0)
== END ==
LOC: LAB 10:44
PROVIDERS: Internal Medicine
DX: I48.20 Chronic atrial fibrillation, unspecified (principal); I42.0 Dilated cardiomyopathy

== ENCOUNTER → 2019-12-03 | Outpatient (CLI) | payer MEDICARE, OTHER ==
[2019-10-22 13:00] VITALS: BP 133/79
[2019-12-03 15:25] LABS: POTASSIUM 3.8 mmol/L (3.5-5.1)
[2019-12-03 15:26] LABS: CALCIUM 10.8 mg/dL (8.3-10.5)
[2019-12-03 15:32] LABS: PROTHROMBIN TIME 15.3 SECONDS (9.0-12.0)
[2019-12-03 15:33] LABS: MAGNESIUM 2.24 mg/dL (1.60-2.60)
== END ==
LOC: LAB 15:00
PROVIDERS: Internal Medicine
DX: I48.20 Chronic atrial fibrillation, unspecified (principal); I42.0 Dilated cardiomyopathy; I50.23 Acute on chronic systolic (congestive) heart failure

== ENCOUNTER → 2019-12-09 | Outpatient (CLI) | payer MEDICARE, OTHER ==
[2019-10-22 13:00] VITALS: BP 133/79
[2019-12-09 10:17] LABS: PROTHROMBIN TIME 18.9 SECONDS (9.0-12.0)
== END ==
LOC: LAB 09:43
PROVIDERS: Internal Medicine
DX: I48.20 Chronic atrial fibrillation, unspecified (principal); I42.0 Dilated cardiomyopathy

== ENCOUNTER → 2019-12-16 | Outpatient (CLI) | payer MEDICARE, OTHER ==
[2019-10-22 13:00] VITALS: BP 133/79
[2019-12-16 11:08] LABS: PROTHROMBIN TIME 18.6 SECONDS (9.0-12.0)
== END ==
LOC: LAB 09:58
PROVIDERS: Internal Medicine
DX: I48.91 Unspecified atrial fibrillation (principal); I42.0 Dilated cardiomyopathy

== ENCOUNTER → 2020-01-13 | Outpatient (CLI) | payer MEDICARE, OTHER ==
[2019-10-22 13:00] VITALS: BP 133/79
[2020-01-13 11:43] LABS: PROTHROMBIN TIME 28.6 SECONDS (9.0-12.0)
== END ==
LOC: LAB 10:42
PROVIDERS: Internal Medicine
DX: I48.91 Unspecified atrial fibrillation (principal); I42.0 Dilated cardiomyopathy

== ENCOUNTER → 2020-01-17 | Outpatient (CLI) | payer MEDICARE, OTHER ==
[2019-10-22 13:00] VITALS: BP 133/79
[2020-01-17 11:22] LABS: PROTHROMBIN TIME 24.8 SECONDS (9.0-12.0)
== END ==
LOC: LAB 11:02
PROVIDERS: Internal Medicine
DX: I48.20 Chronic atrial fibrillation, unspecified (principal); I42.0 Dilated cardiomyopathy

== ENCOUNTER 2020-02-08 17:12 | Emergency (ER) | payer MEDICARE, OTHER ==
[~2020-02-08] VITALS: Ht 170.2 cm; Wt 87.4 kg
[2020-02-08 18:24] LABS: HEMATOCRIT 35.8 % (37.0-47.0); HEMOGLOBIN 10.6 g/dL (12.5-16.0); MEAN CELL VOLUME 95 fl (78-100); MEAN CORPUSCULAR HEMOGLOBIN 28 pg (27-31); MEAN CORPUSCULAR HGB CONC 30 g/dL (33-37); MEAN PLATELET VOLUME 9.6 fl (7.4-10.4); PLATELET COUNT 225 K/mm3 (130-400); RED BLOOD COUNT 3.79 M/mm3 (4.10-5.30); WHITE BLOOD COUNT 8.1 K/mm3 (4.8-10.8)
[2020-02-08 18:32] LABS: POTASSIUM 4.7 mmol/L (3.5-5.1); SODIUM 132 mmol/L (136-145)
[2020-02-08 18:34] LABS: CALCIUM 10.5 mg/dL (8.3-10.5)
[2020-02-08 18:35] LABS: GLUCOSE 116 mg/dL (65-105); TOTAL PROTEIN 6.9 g/dL (6.2-8.1)
[2020-02-08 18:36] LABS: CARBON DIOXIDE 29 mmol/L (23-31)
[2020-02-08 18:37] LABS: TOTAL BILIRUBIN 0.8 mg/dL (0.2-1.2)
[2020-02-08 18:40] LABS: AST-SGOT 25 U/L (5-34)
[2020-02-08 19:06] LABS: ALT/SGPT < 6 U/L (0-55); TROPONIN-I < 0.03 ng/mL (<0.030)
[2020-02-08 19:08] LABS: D-DIMER 0.63 mg/L FEU (0.15-0.50)
[2020-02-08 19:11] LABS: LYMPHOCYTE 9 % (20-51); NEUTROPHILS 80 % (42-75)
[2020-02-08 19:12] LABS: HYPOCHROMIA 1+; MONOCYTE 7 % (3-10)
[2020-02-08 19:27] LABS: URINE APPEARANCE HAZY; URINE BILIRUBIN NEGATIVE (NEGATIVE); URINE COLOR YELLOW; URINE GLUCOSE NEGATIVE (NEGATIVE); URINE KETONE 1+ (NEGATIVE); URINE NITRATE NEGATIVE (NEGATIVE); URINE PROTEIN(semi-quant) TRACE mg/dL (NEGATIVE); URINE UROBILINOGEN NORMAL (NORMAL)
[2020-02-08 19:28] LABS: URINE BLOOD NEGATIVE (NEGATIVE); URINE LEUKOCYTE ESTERASE NEGATIVE (NEGATIVE)
[2020-02-08 19:46] VITALS: BP 127/85
[2020-02-08] MEDS ORDERED: COUMADIN 3MG3 MG/TAB PO (21:37)
[2020-02-08] MEDS ORDERED: SLOW-MAG 106 MG1 ECT PO (21:38)
[2020-02-08] MEDS ORDERED: SINEMET 25-1001 EACH PO (21:40)
== END 2020-02-08 20:01 | disposition other institution (70) ==
LOC: ED 17:12
PROVIDERS: Internal Medicine; Nurse Practitioner Family
DX: I11.0 Hypertensive heart disease with heart failure (principal); I50.9 Heart failure, unspecified; F41.9 Anxiety disorder, unspecified; I12.9 Hypertensive chronic kidney disease with stage 1 through stage 4 chronic kidney disease, or unspecified chronic kidney disease; E11.22 Type 2 diabetes mellitus with diabetic chronic kidney disease; N18.9 Chronic kidney disease, unspecified; Z79.01 Long term (current) use of anticoagulants; Z79.82 Long term (current) use of aspirin
CPT/HCPCS: J1940; J7030

== ENCOUNTER 2020-02-08 19:27 | Inpatient (IN) | payer MEDICARE, OTHER ==
[~2020-02-08] VITALS: Ht 170.2 cm; Wt 83.9 kg
--- NOTE | 2020-02-08 20:01 | NUR ---
Patient admitted via wheel chair from ER with diagnosis of CHF. Ambulates to the bathroom with walker 1 assist but no BM. Chavez catheter to dependent drainage draining clear yellow urine. ER nurse reports she had 250mls of urine output in ER. INT 20 gauge to LFA patent without redness. Oriented to call light, bed alarm and 1500 ml fluid restriction. Reports she has a CHF notebook at home and is very educated on it's contents. States she's on No sugar, no salt diet at home. See admission assessment. Reports chronic pain to neck due to fx injury in the past. States will just take her tylenol PM tonight if she can. Tele on reads paced rhythm. Denies shortness of breath at this time. CPAP at home and Olivia AVALOS notified, patient to wear oxygen 2 lpnc tonight. 02 on 2lpnc. Son was here and left for the night. Patient alert and oriented x 4. Accu check 116 and turkey sandwich given for snack. SCD's applied but reports cramping to legs after 1 hour of being on and removed at this time. Patient sits up on side of bed.
[2020-02-08 20:16] VITALS: BP 127/85
[2020-02-08] MEDS ORDERED: COUMADIN 3MG3 MG/TAB PO (21:37)
[2020-02-08] MEDS ORDERED: SLOW-MAG 106 MG1 ECT PO (21:38)
[2020-02-08] MEDS ORDERED: SINEMET 25-1001 EACH PO (21:40)
[2020-02-08 22:24] VITALS: BP 122/80
--- NOTE | 2020-02-08 23:20 | NUR ---
Report from Shazia LANGFORD. Resting supine in bed watching TV. A/O x4. Oxygen in place at 2L/NC. Normally wears a CPAP at night which is not here. Denies pain. Newly ordered HS medications taken whole without difficulty. Refused SCD's at this time. Bed alarm on, call light in reach.
[2020-02-09 02:24] VITALS: BP 101/66
--- NOTE | 2020-02-09 04:37 | NUR ---
Patient has been resting quietly with no signs of pain or distress. Oxygen in place a 2L/NC. TELE in place. Paced rhythm.
--- NOTE | 2020-02-09 05:48 | NUR ---
Rested well with no complaints/distress through the shift. Awakens easily for V/S. SAO2 97% on 2L/Oxygen. 1,100 ML urinary output via winkler cath since admission t the floor. Weight down 0.7 lbs. Denies pain. Bed alarm on. Call light in reach.
[2020-02-09 05:58] VITALS: BP 107/65
[2020-02-09 06:18] LABS: BASO # 0.1 (0.02-0.10); EOS # 0.2 (0.04-0.40); EOS % 2.7 % (1.0-5.0); HEMATOCRIT 33.9 % (37.0-47.0); HEMOGLOBIN 10.2 g/dL (12.5-16.0); LYMPH# 0.9 (1.50-4.00); MEAN CELL VOLUME 95 fl (78-100); MEAN CORPUSCULAR HEMOGLOBIN 29 pg (27-31); MEAN CORPUSCULAR HGB CONC 30 g/dL (33-37); MEAN PLATELET VOLUME 9.1 fl (7.4-10.4); MONO # 0.7 (0.20-0.80); NEU # 5.2 (1.40-6.50); PLATELET COUNT 208 K/mm3 (130-400); RED BLOOD COUNT 3.57 M/mm3 (4.10-5.30); RED CELL DISTRIBUTION WIDTH 17.1 % (11.5-14.5)
[2020-02-09 06:33] LABS: POTASSIUM 4.3 mmol/L (3.5-5.1); SODIUM 136 mmol/L (136-145)
[2020-02-09 06:34] LABS: CALCIUM 10.2 mg/dL (8.3-10.5); GLUCOSE 113 mg/dL (65-105)
[2020-02-09 06:36] LABS: CARBON DIOXIDE 31 mmol/L (23-31)
[2020-02-09 07:02] LABS: TROPONIN-I < 0.03 ng/mL (<0.030)
[2020-02-09 07:09] LABS: PROTHROMBIN TIME 33.9 SECONDS (9.0-12.0)
--- NOTE | 2020-02-09 07:15 | NUR ---
Report to Yessica LANGFORD.
[2020-02-09 09:42] VITALS: BP 114/76
--- NOTE | 2020-02-09 12:39 | NUR ---
PT UP IN CHAIR FINISHING LUNCH, ATE WELL, SWALLOWED ALL PILLS TODAY WHOLE WITH NO DIFFICULTIES, FULLY ALERT AND ORIENTED, DENIES PAIN AT THIS TIME, DENIES NEEDS, DENIES ANY ACUTE CHANGES, CHAIR ALARM ON AND CALL LIGHT WITHIN REACH
[2020-02-09 14:17] VITALS: BP 100/63
--- NOTE | 2020-02-09 15:45 | NUR ---
PT'S SON UPDATED VIA PHONE OF PATIENTS PLAN OF CARE AND CURRENT HEALTH STATUS, NO FURTHER QUESTIONS AT THIS TIME
[2020-02-09 16:46] VITALS: BP 120/65
--- NOTE | 2020-02-09 19:15 | NUR ---
Report received from Yessica LANGFORD. Up in recliner watching TV. A/O x4. Denies pain. Oxygen in place at 2L/NC. TELE in place, paced rhythmn. Denies SOA or couth. INT patent to HARLEY. Chavez Cath to DD with light pink tinge urine and small clots in tubing. Assessment completed. Denies wants or needs at this time. Remains on a 1500 ML FR.
--- NOTE | 2020-02-09 21:00 | NUR ---
Oral cares performed independently, chairside. Brushed teeth, mouth wash, soaked partial. HS medications taken whole without difficulty. Ambulated to bed with SBA and walker. Able to get self into bed. Positioned for comfort with bed alarm on, call light in reach. Refuses SCD's. "They make my legs cramp".
[2020-02-09 22:00] VITALS: BP 113/60
--- NOTE | 2020-02-09 22:00 | NUR ---
VSS. Complains of "itching" at cath site. [employer] provides cath care and lotion to inner thighs per request.
--- NOTE | 2020-02-10 00:02 | NUR ---
Sleeping, no signs of distress. Oxygen in place at 2L/NC.
[2020-02-10 02:05] VITALS: BP 115/71
--- NOTE | 2020-02-10 02:42 | NUR ---
REsts with eyes closed. No signs of pain or distress. Bed alarm on. Call light in reach.
--- NOTE | 2020-02-10 05:17 | NUR ---
Awakened for AM vital signs and PO medication. Chavez continues to have small clots in tubing, tea colored urine. States did not sleep well but staff has noted patient sleeping when checked on hourly rounds.
[2020-02-10 05:26] LABS: HEMATOCRIT 34.6 % (37.0-47.0); HEMOGLOBIN 10.2 g/dL (12.5-16.0); MEAN CELL VOLUME 96 fl (78-100); MEAN CORPUSCULAR HEMOGLOBIN 28 pg (27-31); MEAN CORPUSCULAR HGB CONC 30 g/dL (33-37); MEAN PLATELET VOLUME 9.5 fl (7.4-10.4); PLATELET COUNT 203 K/mm3 (130-400); RED BLOOD COUNT 3.59 M/mm3 (4.10-5.30); RED CELL DISTRIBUTION WIDTH 17.2 % (11.5-14.5); WHITE BLOOD COUNT 7.3 K/mm3 (4.8-10.8)
[2020-02-10 05:42] LABS: POTASSIUM 4.4 mmol/L (3.5-5.1)
[2020-02-10 05:56] LABS: PROTHROMBIN TIME 25.4 SECONDS (9.0-12.0)
[2020-02-10 06:03] VITALS: BP 113/68
[2020-02-10 06:43] LABS: LYMPHOCYTE 13 % (20-51); MONOCYTE 6 % (3-10); NEUTROPHILS 78 % (42-75)
--- NOTE | 2020-02-10 07:05 | NUR ---
REPORT RECEIVED FROM DAVIS HUA.
--- NOTE | 2020-02-10 07:22 | NUR ---
Report to Jessica LANGFORD.
--- NOTE | 2020-02-10 07:47 | NUR ---
SHIFT ASSESSMENT COMPLETE. PATIENT SITTING IN CHAIR, RUMMAGING THROUGH PURSE. OXYGEN IN PLACE AT 2LPM VIA NC. DENIES FEELING SHORT OF BREATH. FINE CRACKLES NOTED THROUGHOUT LUNG ALBA. ABD ROUNDED AND TIGHT, ALTHOUGH PATIENT REPORTS IT HAS DECREASED SINCE ADMISSION. 1500ML FLUID RESTRICTION IN PLACE.
[2020-02-10 09:44] VITALS: BP 113/72
--- NOTE | 2020-02-10 10:52 | NUR ---
CHURCH CATH DISCONTINUED PER VERBAL ORDER FROM STORMY JEAN BAPTISTE. PATIENT TO NOW SHOWER WITH [employer] ARCHITECT SET UP ASSIST.
--- NOTE | 2020-02-10 12:40 | NUR ---
DISCUSS HOME MED AND CPAP THAT NEEDS BROUGHT IN WITH PATIENT. SHE HESITATES TO HAVE FAMILY BRING THEM IN SHE IS HOPING TO GO HOME TODAY.
[2020-02-10 14:06] VITALS: BP 114/72
--- NOTE | 2020-02-10 16:37 | NUR ---
Pt has chosen [facility] for her HH services. Choice list signed and H & P, Progress notes, Lab, Xray, therapy notes and facesheet faxed to [facility].
[2020-02-10 17:15] VITALS: BP 130/73
--- NOTE | 2020-02-10 19:04 | NUR ---
REPORT PROVIDED TO ELENA LANGFORD.
--- NOTE | 2020-02-10 21:00 | NUR ---
Patient sits up in recliner. Denies pain at this time. HS meds all reviewed and given. Alert and oriented x 4. Pleasant.
[2020-02-10 21:54] VITALS: BP 144/54
--- NOTE | 2020-02-10 23:00 | NUR ---
Patient assisted to the bathroom with walker and to bed.
--- NOTE | 2020-02-11 01:51 | NUR ---
Patient has been resting with eyes closed. Respirations with ease.
[2020-02-11 01:56] VITALS: BP 144/62
--- NOTE | 2020-02-11 05:01 | NUR ---
Has been resting with eyes closed. Respirations with ease.
[2020-02-11 05:47] VITALS: BP 133/60
[2020-02-11 07:55] LABS: POTASSIUM 4.3 mmol/L (3.5-5.1)
[2020-02-11 09:57] VITALS: BP 103/60
--- NOTE | 2020-02-11 13:46 | NUR ---
[facility] notified that pt will be moved to [facility] services today. Will f/u with HH later next week.
[2020-02-11 14:15] VITALS: BP 109/67
--- NOTE | 2020-02-11 15:00 | NUR ---
The pt is discharged from inpatient to swingbed at [facility] at this time. The pt is alert and oriented and respirations are even and unlabored. The pt denies any pain and the pt is stable.
== END 2020-02-11 15:00 | disposition swing bed (61) | DRG 292 ==
LOC: MED/SURG 19:27
PROVIDERS: Physician Assistant; ADMIT Nurse Practitioner Family
DX: I50.23 Acute on chronic systolic (congestive) heart failure (principal); E87.1 Hypo-osmolality and hyponatremia; I42.9 Cardiomyopathy, unspecified; I48.91 Unspecified atrial fibrillation; I25.10 Atherosclerotic heart disease of native coronary artery without angina pectoris; E11.22 Type 2 diabetes mellitus with diabetic chronic kidney disease; E78.5 Hyperlipidemia, unspecified; N18.9 Chronic kidney disease, unspecified; G47.33 Obstructive sleep apnea (adult) (pediatric); I27.20 Pulmonary hypertension, unspecified; I34.0 Nonrheumatic mitral (valve) insufficiency; R09.02 Hypoxemia; G20 Parkinson's disease; R33.9 Retention of urine, unspecified; Z79.01 Long term (current) use of anticoagulants; Z95.818 Presence of other cardiac implants and grafts; Z90.710 Acquired absence of both cervix and uterus; Z96.612 Presence of left artificial shoulder joint; Z96.611 Presence of right artificial shoulder joint; Z79.82 Long term (current) use of aspirin; Z88.0 Allergy status to penicillin; Z88.5 Allergy status to narcotic agent
CPT/HCPCS: J1940

== ENCOUNTER 2020-02-11 13:41 | Inpatient (IN) | payer MEDICARE, OTHER ==
[~2020-02-11] VITALS: Ht 167.6 cm; Wt 77.9 kg
[~2020-02-11 13:41] MED LIST changes: +SINEMET 25-1001 EACH PO
[2020-02-11 15:37] VITALS: BP 109/67
[2020-02-11 15:46] VITALS: BP 109/67
[2020-02-11 16:37] VITALS: BP 122/77
[2020-02-11 18:21] VITALS: BP 113/65
[2020-02-11 20:19] VITALS: BP 127/73
[2020-02-12 06:14] VITALS: BP 114/71
[2020-02-12 18:05] VITALS: BP 118/73
[2020-02-13 06:02] VITALS: BP 111/68
[2020-02-13 08:00] LABS: HEMATOCRIT 33.6 % (37.0-47.0); MEAN CELL VOLUME 95 fl (78-100); MEAN CORPUSCULAR HEMOGLOBIN 28 pg (27-31); MEAN CORPUSCULAR HGB CONC 30 g/dL (33-37); PLATELET COUNT 214 K/mm3 (130-400); RED BLOOD COUNT 3.54 M/mm3 (4.10-5.30); RED CELL DISTRIBUTION WIDTH 17.4 % (11.5-14.5); WHITE BLOOD COUNT 6.7 K/mm3 (4.8-10.8)
[2020-02-13 08:13] LABS: PROTHROMBIN TIME 17.4 SECONDS (9.0-12.0)
[2020-02-13 08:28] LABS: ALBUMIN 3.7 g/dL (3.4-4.8)
[2020-02-13 08:29] LABS: POTASSIUM 3.5 mmol/L (3.5-5.1)
[2020-02-13 08:31] LABS: TOTAL PROTEIN 6.4 g/dL (6.2-8.1)
[2020-02-13 08:38] LABS: HYPOCHROMIA 1+; LYMPHOCYTE 15 % (20-51); MONOCYTE 10 % (3-10); NEUTROPHILS 73 % (42-75)
[2020-02-13 17:36] VITALS: BP 121/71
[2020-02-14 05:31] VITALS: BP 126/70
[2020-02-14 18:07] VITALS: BP 133/69
[2020-02-15 06:11] LABS: PROTHROMBIN TIME 13.3 SECONDS (9.0-12.0)
[2020-02-15 06:13] VITALS: BP 110/60
[2020-02-15 08:32] LABS: BASO # 0.1 (0.02-0.10); EOS # 0.2 (0.04-0.40); EOS % 2.7 % (1.0-5.0); HEMATOCRIT 35.8 % (37.0-47.0); HEMOGLOBIN 10.7 g/dL (12.5-16.0); LYMPH# 0.9 (1.50-4.00); MEAN CELL VOLUME 94 fl (78-100); MEAN CORPUSCULAR HEMOGLOBIN 28 pg (27-31); MEAN CORPUSCULAR HGB CONC 30 g/dL (33-37); MEAN PLATELET VOLUME 8.6 fl (7.4-10.4); MONO # 0.7 (0.20-0.80); NEU # 4.8 (1.40-6.50); PLATELET COUNT 255 K/mm3 (130-400); RED BLOOD COUNT 3.81 M/mm3 (4.10-5.30); RED CELL DISTRIBUTION WIDTH 16.7 % (11.5-14.5); WHITE BLOOD COUNT 6.7 K/mm3 (4.8-10.8)
[2020-02-15 08:41] LABS: ALBUMIN 3.6 g/dL (3.4-4.8); POTASSIUM 3.5 mmol/L (3.5-5.1); SODIUM 138 mmol/L (136-145)
[2020-02-15 08:42] LABS: CALCIUM 11.6 mg/dL (8.3-10.5)
[2020-02-15 08:43] LABS: GLUCOSE 123 mg/dL (65-105); TOTAL PROTEIN 6.7 g/dL (6.2-8.1)
[2020-02-15 08:44] LABS: CARBON DIOXIDE 41 mmol/L (23-31)
[2020-02-15 08:45] LABS: TOTAL BILIRUBIN 0.8 mg/dL (0.2-1.2)
[2020-02-15 08:48] LABS: AST-SGOT 19 U/L (5-34)
[2020-02-15 08:49] LABS: DIGOXIN 1.1 ng/mL (0.8-2.0)
[2020-02-15 08:50] LABS: MAGNESIUM 1.71 mg/dL (1.60-2.60)
[2020-02-15 08:56] LABS: ALT/SGPT < 6 U/L (0-55)
[2020-02-15 15:44] VITALS: BP 113/65
[2020-02-16 05:34] VITALS: BP 124/75
[2020-02-16 16:30] VITALS: BP 107/47
[2020-02-17 04:47] VITALS: BP 128/58
[2020-02-17] MEDS ORDERED: LASIX40 M1 PO (11:19)
== END 2020-02-17 13:20 | disposition home health service (06) | DRG 947 ==
LOC: MED/SURG 13:41
PROVIDERS: Family Medicine; Internal Medicine; ADMIT Nurse Practitioner
DX: R53.81 Other malaise (principal); I50.23 Acute on chronic systolic (congestive) heart failure; I42.9 Cardiomyopathy, unspecified; I48.20 Chronic atrial fibrillation, unspecified; I50.82 Biventricular heart failure; E11.22 Type 2 diabetes mellitus with diabetic chronic kidney disease; N18.3 Chronic kidney disease, stage 3 (moderate); I25.10 Atherosclerotic heart disease of native coronary artery without angina pectoris; I34.0 Nonrheumatic mitral (valve) insufficiency; G20 Parkinson's disease; I27.20 Pulmonary hypertension, unspecified; G47.33 Obstructive sleep apnea (adult) (pediatric); E78.5 Hyperlipidemia, unspecified; Z90.710 Acquired absence of both cervix and uterus; Z79.01 Long term (current) use of anticoagulants; Z79.82 Long term (current) use of aspirin; Z87.891 Personal history of nicotine dependence; Z88.0 Allergy status to penicillin; Z88.5 Allergy status to narcotic agent
CPT/HCPCS: J1940; J2916

== ENCOUNTER → 2020-02-22 | Outpatient (CLI) | payer MEDICARE, OTHER ==
[2020-02-17 04:47] VITALS: BP 128/58
[~2020-02-22] MED LIST changes: +LASIX40 M1 PO
[2020-02-22 11:07] LABS: POTASSIUM 3.4 mmol/L (3.5-5.1)
[2020-02-22 11:08] LABS: CALCIUM 10.7 mg/dL (8.3-10.5)
[2020-02-22 11:15] LABS: MAGNESIUM 2.13 mg/dL (1.60-2.60)
[2020-02-22 11:25] LABS: PROTHROMBIN TIME 14.5 SECONDS (9.0-12.0)
== END ==
LOC: LAB 10:42
PROVIDERS: Internal Medicine
DX: I11.0 Hypertensive heart disease with heart failure (principal); E11.9 Type 2 diabetes mellitus without complications; K90.9 Intestinal malabsorption, unspecified; J43.1 Panlobular emphysema; I48.91 Unspecified atrial fibrillation; I50.9 Heart failure, unspecified

== ENCOUNTER → 2020-03-09 | Outpatient (CLI) | payer MEDICARE, OTHER ==
[2020-02-17 04:47] VITALS: BP 128/58
[2020-03-09 11:08] LABS: BASO # 0.1 (0.02-0.10); EOS # 0.4 (0.04-0.40); EOS % 4.8 % (1.0-5.0); HEMATOCRIT 38.8 % (37.0-47.0); HEMOGLOBIN 11.6 g/dL (12.5-16.0); MEAN CELL VOLUME 94 fl (78-100); MEAN CORPUSCULAR HEMOGLOBIN 28 pg (27-31); MEAN CORPUSCULAR HGB CONC 30 g/dL (33-37); MEAN PLATELET VOLUME 9.3 fl (7.4-10.4); MONO # 0.7 (0.20-0.80); NEU # 5.5 (1.40-6.50); PLATELET COUNT 275 K/mm3 (130-400); RED BLOOD COUNT 4.15 M/mm3 (4.10-5.30); WHITE BLOOD COUNT 7.7 K/mm3 (4.8-10.8)
[2020-03-09 11:17] LABS: PROTHROMBIN TIME 11.9 SECONDS (9.0-12.0)
[2020-03-09 11:18] LABS: ALBUMIN 4.1 g/dL (3.4-4.8); POTASSIUM 3.6 mmol/L (3.5-5.1)
[2020-03-09 11:21] LABS: TOTAL PROTEIN 6.9 g/dL (6.2-8.1)
[2020-03-09 11:22] LABS: TOTAL BILIRUBIN 0.7 mg/dL (0.2-1.2)
[2020-03-09 11:27] LABS: MAGNESIUM 1.92 mg/dL (1.60-2.60)
== END ==
LOC: LAB 10:39
PROVIDERS: Internal Medicine
DX: E11.9 Type 2 diabetes mellitus without complications (principal); J43.1 Panlobular emphysema; I50.9 Heart failure, unspecified; I11.0 Hypertensive heart disease with heart failure; I48.91 Unspecified atrial fibrillation

== ENCOUNTER → 2020-03-17 | Outpatient (CLI) | payer MEDICARE, OTHER ==
[2020-02-17 04:47] VITALS: BP 128/58
[2020-03-17 12:40] LABS: ALBUMIN 4.2 g/dL (3.4-4.8); POTASSIUM 3.7 mmol/L (3.5-5.1)
[2020-03-17 12:41] LABS: CALCIUM 10.5 mg/dL (8.3-10.5)
[2020-03-17 12:43] LABS: TOTAL PROTEIN 7.1 g/dL (6.2-8.1)
[2020-03-17 12:44] LABS: TOTAL BILIRUBIN 0.8 mg/dL (0.2-1.2)
== END ==
LOC: LAB 10:50
PROVIDERS: Internal Medicine
DX: I48.91 Unspecified atrial fibrillation (principal); E11.9 Type 2 diabetes mellitus without complications; J43.1 Panlobular emphysema; I11.0 Hypertensive heart disease with heart failure; I50.9 Heart failure, unspecified

== ENCOUNTER → 2020-03-24 | Outpatient (CLI) | payer MEDICARE, OTHER | LOC: LAB 10:21 | DX: I50.9 Heart failure, unspecified (principal) ==

== ENCOUNTER → 2020-05-19 | Outpatient (CLI) | payer MEDICARE, OTHER ==
[2020-05-19 16:05] LABS: BASO # 0.1 (0.02-0.10); EOS # 0.3 (0.04-0.40); EOS % 3.7 % (1.0-5.0); HEMATOCRIT 37.8 % (37.0-47.0); HEMOGLOBIN 11.9 g/dL (12.5-16.0); LYMPH# 1.2 (1.50-4.00); MEAN CELL VOLUME 92 fl (78-100); MEAN CORPUSCULAR HEMOGLOBIN 29 pg (27-31); MEAN CORPUSCULAR HGB CONC 32 g/dL (33-37); MEAN PLATELET VOLUME 8.3 fl (7.4-10.4); MONO # 0.7 (0.20-0.80); NEU # 6.1 (1.40-6.50); PLATELET COUNT 280 K/mm3 (130-400); RED BLOOD COUNT 4.11 M/mm3 (4.10-5.30); RED CELL DISTRIBUTION WIDTH 15.3 % (11.5-14.5); WHITE BLOOD COUNT 8.3 K/mm3 (4.8-10.8)
[2020-05-19 16:13] LABS: ALBUMIN 4.3 g/dL (3.4-4.8); POTASSIUM 3.1 mmol/L (3.5-5.1)
[2020-05-19 16:14] LABS: CALCIUM 10.9 mg/dL (8.3-10.5)
[2020-05-19 16:15] LABS: TOTAL PROTEIN 7.5 g/dL (6.2-8.1)
[2020-05-19 16:17] LABS: TOTAL BILIRUBIN 0.5 mg/dL (0.2-1.2)
[2020-05-19 16:22] LABS: MAGNESIUM 1.63 mg/dL (1.60-2.60)
== END ==
LOC: LAB 15:53
PROVIDERS: Internal Medicine
DX: E11.9 Type 2 diabetes mellitus without complications (principal); I10 Essential (primary) hypertension; J43.1 Panlobular emphysema

== ENCOUNTER → 2020-05-30 | Outpatient (CLI) | payer MEDICARE, OTHER ==
[2020-05-24 18:16] VITALS: BP 114/72
[~2020-05-30] MED LIST changes: +JANTOVEN3 M1 PO; +[UNRECOGNIZED DRUG - OTHER] PO
[2020-05-30 12:14] LABS: POTASSIUM 3.8 mmol/L (3.5-5.1)
[2020-05-30 12:16] LABS: CALCIUM 9.9 mg/dL (8.3-10.5)
== END ==
LOC: AMSURD 11:21
PROVIDERS: Internal Medicine Cardiovascular Disease
DX: E87.5 Hyperkalemia (principal); I48.0 Paroxysmal atrial fibrillation

== ENCOUNTER 2020-05-31 10:00 | Outpatient (RCR) | payer MEDICARE, OTHER | END 2020-05-31 11:00 | disposition home or self-care (01) | LOC: CARDREHAB 10:00 | DX: Z48.812 Encounter for surgical aftercare following surgery on the circulatory system (principal); Z95.5 Presence of coronary angioplasty implant and graft ==

== ENCOUNTER → 2020-06-15 | Outpatient (CLI) | payer MEDICARE, OTHER ==
[2020-05-24 18:16] VITALS: BP 114/72
[2020-06-15 10:24] LABS: POTASSIUM 2.7 mmol/L (3.5-5.1)
== END ==
LOC: LAB 09:57
PROVIDERS: Internal Medicine
DX: I42.8 Other cardiomyopathies (principal); R33.9 Retention of urine, unspecified

== ENCOUNTER → 2020-06-22 | Outpatient (CLI) | payer MEDICARE, OTHER ==
[2020-05-24 18:16] VITALS: BP 114/72
[2020-06-23 08:29] LABS: HEMATOCRIT 33.9 % (37.0-47.0); HEMOGLOBIN 10.2 g/dL (12.5-16.0); MEAN CELL VOLUME 96 fl (78-100); MEAN CORPUSCULAR HEMOGLOBIN 29 pg (27-31); MEAN CORPUSCULAR HGB CONC 30 g/dL (33-37); MEAN PLATELET VOLUME 9.1 fl (7.4-10.4); PLATELET COUNT 345 K/mm3 (130-400); RED BLOOD COUNT 3.53 M/mm3 (4.10-5.30); RED CELL DISTRIBUTION WIDTH 16.1 % (11.5-14.5); WHITE BLOOD COUNT 8.6 K/mm3 (4.8-10.8)
[2020-06-23 08:30] LABS: LYMPHOCYTE 9 % (20-51); MONOCYTE 11 % (3-10)
[2020-06-23 08:31] LABS: HYPOCHROMIA 1+; NEUTROPHILS 78 % (42-75); POLYCHROMASIA 1+
[2020-06-23 08:34] LABS: ALBUMIN 4.1 g/dL (3.4-4.8); POTASSIUM 4.8 mmol/L (3.5-5.1)
[2020-06-23 08:35] LABS: CALCIUM 10.5 mg/dL (8.3-10.5)
[2020-06-23 08:43] LABS: MAGNESIUM 2.46 mg/dL (1.60-2.60)
== END ==
LOC: LAB 10:45
PROVIDERS: Internal Medicine
DX: E11.9 Type 2 diabetes mellitus without complications (principal); I11.0 Hypertensive heart disease with heart failure; I50.9 Heart failure, unspecified; J43.1 Panlobular emphysema